=== PATIENT | male | born 1985 | race Caucasian/White ===

== ENCOUNTER 2021-07-10 23:33 | Inpatient (IN) | payer MEDICAID, OTHER ==
[~2021-07-10] VITALS: Ht 177.8 cm; Wt 64.0 kg
[~2021-07-10 23:33] MED LIST: CYCL-1 PO; DICL100G15 TOP; IBUP-1985 PO; LIDO700A32 TOP; ONDA4TAB12 PO
[2021-07-10] MEDS ORDERED: naloxone 2mg/2ml inj ONE (23:43)
[2021-07-10] MEDS ORDERED: normal saline 1000ML IV soln IVB ONE (23:45)
[2021-07-10 23:58] LABS: ABG BASE EXCESS -7.3 mmol/L (-2.0-2.0); ABG HCO3 19.8 mmol/L (22.0-26.0); ABG OXYGEN SATURATION 98.7 % (94-97); ABG PCO2 (T) 42.1 mmHg (35.0-48.0); ABG PO2 (T) 169.6 mmHg (75.0-100.0); ALLEN'S TEST POSITIVE; FCOHb 0.3 % (0.0-3.9); FMetHb 0.2 % (0.0-1.5); FO2Hb 98.2 % (94-97); PATIENT TEMPERATURE 35.1; TOTAL HEMOGLOBIN 16.7 G/dl (14.0-18.0)
[2021-07-11 00:04] LABS: BASOPHILS # (AUTO) 0.1 X10'3 (0-0.2); EOSINOPHILS # (AUTO) 0.1 X10'3 (0-0.9); EOSINOPHILS % (AUTO) 0.7 % (0-6); HEMATOCRIT 47.6 % (42.0-52.0); HEMOGLOBIN 16.5 g/dl (14.0-17.9); LYMPHOCYTES # (AUTO) 4.2 X10'3 (1.1-4.8); LYMPHOCYTES % (AUTO) 46.5 % (21-51); MEAN CORPUSCULAR HEMOGLOBIN 33.1 PG (27.0-31.0); MEAN CORPUSCULAR HGB CONC 34.6 g/dL (33.0-36.5); MEAN CORPUSCULAR VOLUME 95.7 FL (78-98); MONOCYTES # (AUTO) 0.6 X10'3 (0-0.9); MONOCYTES % (AUTO) 6.6 % (2-12); NEUTROPHILS % (AUTO) 45.2 % (42-75); PLATELET COUNT 344 X10'3 (140-440); RED BLOOD COUNT 4.98 X10'6 (4.70-6.10); RED CELL DISTRIBUTION WIDTH 12.5 % (11.5-14.5); WHITE BLOOD COUNT 8.9 X10'3 (4.5-11.0)
[2021-07-11] MEDS ORDERED: ondansetron/PF 4mg/2ml inj IV ONE (00:05)
[2021-07-11] MEDS ORDERED: pantoprazole 40MG/NS 100ML BAG 100 ML IV ONE (00:10)
[2021-07-11] MEDS ORDERED: AMPH10TA2 PO (00:11)
[2021-07-11] MEDS ORDERED: ALPR1TAB7 PO (00:11)
[2021-07-11] MEDS ORDERED: LAMO100T PO (00:11)
--- NOTE | 2021-07-11 00:11 | NUR ---
PT. PRESENTED IN ER UNCONCIOUS. BROUGHT IN BY [employer] W/POSSIBLE OVERDOSE. 2MG OF NARCAN GIVEN UPON ARRIVAL. 2 LARGE BORE IVS STARTED ON L/R FOREARM 1L OF NS FLUID BOLUS HUNG. PT. STRAIGHT CATHD FOR URINE SAMPLE. ABG DRAWN AND RESPIRATORY BEDSIDE DURING TRIAGE.
[2021-07-11 00:17] LABS: CLARITY,URINE CLEAR (Clear); COLOR,URINE YELLOW (Yellow); GLUCOSE, URINE NEGATIVE (Neg); KETONES,URINE NEGATIVE (Neg); LEUKOCYTE ESTERASE ,URINE NEGATIVE (Neg); NITRITES, URINE NEGATIVE (Neg); OCCULT BLOOD,URINE SMALL (Neg); PH,URINE 5.5 (4.8-8.0); PROTEIN,URINE NEGATIVE (Neg); UROBILINOGEN,URINE 0.2 E.U/dL (0.2-1.0)
[2021-07-11 00:23] LABS: UA COLLECTION TYPE STRAIGHT CATH
[2021-07-11 00:25] LABS: BACTERIA,URINE NONE SEEN /HPF (Neg); MUCUS STRANDS NONE SEEN /LPF (Neg); SQUAMOUS EPITHELIAL CELL,UR FEW /LPF (FEW); URINE AMPHETAMINE SCREEN POSITIVE (Neg); URINE BARBITUATE SCREEN NEGATIVE (Neg); URINE BENZODIAZEPINES SCREEN POSITIVE (Neg); URINE CANNABINOID SCREEN NEGATIVE (Neg); URINE COCAINE SCREEN NEGATIVE (Neg); URINE METHADONE SCREEN NEGATIVE (Neg); URINE OPIATE SCREEN NEGATIVE (Neg); URINE PHENCYCLIDINE SCREEN NEGATIVE (Neg); WBC,URINE NONE SEEN /HPF (0-4)
[2021-07-11 00:28] LABS: ALANINE AMINOTRANSFERASE 14 U/L (12-78); ALBUMIN 4.1 G/DL (3.4-5.0); ALBUMIN/GLOBULIN RATIO 1.4 (1.1-1.5); ALKALINE PHOSPHATASE 31 IU/L (46-116); ANION GAP 8 (8-16); ASPARTATE AMINO TRANSFERASE 12 U/L (10-37); BILIRUBIN,TOTAL 0.2 MG/DL (0.1-1.0); BLOOD UREA NITROGEN 14 MG/DL (7-18); BUN/CREATININE RATIO 13.9 (5.4-32.0); CALCIUM 7.6 MG/DL (8.5-10.1); CHLORIDE 111 MMOL/L (99-107); CREATININE 1.01 MG/DL (0.60-1.10); GLUCOSE 81 MG/DL (70-104); POTASSIUM 3.4 MMOL/L (3.5-5.1); SODIUM 145 MMOL/L (135-145); TOTAL CARBON DIOXIDE 26.1 MMOL/L (24-32); eGFR 83 ML/MIN
[2021-07-11] MEDS ORDERED: normal saline 1000ML IV soln IVB ONE (00:30)
[2021-07-11 00:37] LABS: ACETAMINOPHEN < 2.0 UG/ML (10-30); ETHANOL 0.208 GM/DL (0.0-0.010)
--- NOTE | 2021-07-11 00:54 | NUR ---
POISON CONTROL CONTACTED. RECOMMENDED SUPPORTIVE CARE AND ORDERS FOR CK AND LACTATE DRAW. ALSO RECOMMENDED USING NARCAN AGAIN IF PT CONTINUES TO REMAIN ALTERED. 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 WILL CONTINUE TO MONITOR PT FOR NEXT 6H AND WATCH FOR QT PROLONGATION. POISON CONTROL ALSO STATED NOT TO USE FLUMAZENIL TO AVOID WITHDRAWL.
[2021-07-11 02:30] LABS: CREATINE KINASE 63 U/L (39-308)
--- NOTE | 2021-07-11 03:15 | NUR ---
PT SLEEPING COMFORTABLY. VITAL SIGNS STABLE. 2L OF FLUID BOLUS GIVEN AND BP STILL LOW. WILL CONTINUE TO MONITOR, PA AWARE.
--- NOTE | 2021-07-11 05:15 | NUR ---
PT GAVE MOTHERS NAME AND NUMBER NIXON AT
--- NOTE | 2021-07-11 05:32 | NUR ---
Pt placed in one soft wrist restrait for safety. Pt has climbed out of bed twice and fallen as well as pulled out his IV's. Pt is very unsteady on his feet and is still disoriented. Pt comfort adressed after each fall; urinal offered and blankets provided. notified
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
--- NOTE | 2021-07-11 06:23 | NUR ---
pt resting, eyes closed. 1:1 at bedside for safety.
--- NOTE | 2021-07-11 06:30 | NUR ---
PT CURRENTLY LIVES WITH GRANDMOTHER. MOTHER STATED SHE DOES NOT WANT HIM GOING TO A MENTAL HEALTH FACILITY THAT MAKES HIM FEEL "UNCOMFORTABLE". PT STATED HE DID NOT WANT TO BACK TO [facility] FOR MH TREATMENT.
[2021-07-11] MEDS ORDERED: pantoprazole 40 MG vial IV SCH (08:00)
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
--- NOTE | 2021-07-11 08:31 | NUR ---
Patient moved to room ER-16 to remain within view of staff at all times. Patient calm and cooperative at this time.
--- NOTE | 2021-07-11 08:45 | NUR ---
pt is frequently climbing out of bed, asking to go home, accusing staff of being disrespectful. He is difficult to re-direct. Moved to bed 16 for better view from nursing station. Offered food and drink.
--- NOTE | 2021-07-11 09:30 | NUR ---
Patient pushed tray with food on table with foot hard enough to cause tray to fall over. Patient states "I want to talk to a nurse or a doctor to evaluate me...fruit picker my mess and get out..." Patient within sight of staff at all times.
--- NOTE | 2021-07-11 13:12 | NUR ---
Patient found banging on wall by staff, pat found to have restraint around neck, patient awake, no respiratory distress noted with facial discoloration, patient straining, cord cut off with scissors, patient upset stating "I just want to keegan to a nurse... I want to talk to my mom... I don't get a nurse telling me I want to leave..." no signs of distress noted, skin around neck WNL, primary RN Celeste made aware, Dr Pierce at bedside to assess patient. Sitter assigned to patient.
[2021-07-11] MEDS ORDERED: LORazepam 2 mg/ml vial IM ONE ×2 (13:15→16:40)
[2021-07-11] MEDS ORDERED: haloperidol lactate 5mg/ml inj IM ONE (13:15)
[2021-07-11] MEDS ORDERED: diphenhydrAMINE 50 mg/ml inj IM ONE (13:15)
--- NOTE | 2021-07-11 13:50 | NUR ---
Pt is refusing Haldol injection. Pt has received Ativan and Benadryl but reports the Haldol makes him feel like a "zombie". Dr Pierce updated and as pt currently cooperative Haldol to be held for now. Pt remains with tech outside in front of pt room.
--- NOTE | 2021-07-11 14:15 | NUR ---
PATIENT AWAKE AND IMPULSIVE. GETTING ON AND OFF GURNEY FREQUENTLY. PATIENT IS STANDING ON THE GURNEY AND ASSISTED TO SITTING POSITION PER SITTER. PATIENT HAVING FREQUENT REQUESTS FROM STAFF, THEN IS EASILY AGITATED AND ACCUSES STAFF OF "LAUGHING AT HIM".
--- NOTE | 2021-07-11 14:40 | NUR ---
Mom of pt has requested that Man does NOT make calls to her anymore as it is not helping the situation.
--- NOTE | 2021-07-11 14:46 | NUR ---
Received call from poison control checking on pt status. Pt VSs and labs reviewed, pt is cleared medically per poison control.
[2021-07-11] MEDS ORDERED: haloperidol lactate 5mg/ml inj IM NR (15:10)
--- NOTE | 2021-07-11 15:46 | NUR ---
Pt currently laying on R side resting with eyes closed, effortless respirations observed.
[2021-07-11] MEDS ORDERED: OLANZapine **IM** 10 mg inj. IM ONE (16:40)
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
--- NOTE | 2021-07-11 16:56 | NUR ---
1644 pt out of bed tech asked pt to get back in bed so he wouldnt fall pt states "you better leave me the fuck alone" charged at tech shoving through doors and pushing tech, rest of ER staff assisted tech placing pt back in bed. security called 4 point restraints applied IM orders for zyprexa and ativan given. Dr lyles aware
[2021-07-12] MEDS ORDERED: dextroamphetamine/amphetamine 5mg tablet PO ONE (08:00)
--- NOTE | 2021-07-12 18:53 | NUR ---
ASSUMED CARE OF PT. PT SLEEPING ON HIS LEFT SIDE. EQUAL RISE AND FALL OF CHEST,.
--- NOTE | 2021-07-12 19:49 | NUR ---
PT TURNED ON HIS LEFT SIDE AND CONTINUES TO SLEEP. EQUAL RISE AND FALL OF CHEST.
[2021-07-12] MEDS ORDERED: dextroamphetamine/amphetamine 10mg tablet PO SCH (21:00)
[2021-07-12] MEDS: ALPRAZolam 0.5mg tablet PO SCH (21:00)
--- NOTE | 2021-07-12 21:00 | NUR ---
PT SAT UP, LOOKED AROUND, AND WENT BACK TO SLEEP.
[2021-07-12] MEDS: dextroamphetamine/amphetamine 5mg tablet PO SCH (22:00)
--- NOTE | 2021-07-12 22:00 | NUR ---
PT SLEEPING ON HIS LEFT SIDE. EQUAL RISE AND FALL OF CHEST.
--- NOTE | 2021-07-12 22:15 | NUR ---
SPOKE TO DR AVILEZ CONCERNING PT'S ADDERALL THAT WAS ORDERED FOR NIGHT TIME. HE GAVE VO TO HOLD MED SO PT CAN SLEEP.
--- NOTE | 2021-07-12 23:00 | NUR ---
PT SLEEPIN ON HIS SIDE. EQUAL RISE AND FALL OF CHEST. SITTER WITHIN EYESIGHT OBSERVATION
--- NOTE | 2021-07-13 | NUR ---
PT READJUSTS HIMSELF IN BED FROM TIME TO TIME. CONTINUES TO SLEEP. EQUAL RISE AND FALL OF CHEST.
--- NOTE | 2021-07-13 01:00 | NUR ---
PT LYING ON HIS LEFT SIDE. EQUAL RISE AND FALL OF CHEST .
--- NOTE | 2021-07-13 02:00 | NUR ---
PT LYING ON HIS LEFT SIDE AND SLEEPING. EQUAL RISE AND FALL OF CHEST.
--- NOTE | 2021-07-13 03:06 | NUR ---
PT LYING ON HIS RIGHT SIDE. EQUAL RISE AND FALL OF CHEST.
--- NOTE | 2021-07-13 04:00 | NUR ---
PT SLEEPING ON HIS SIDE COMFORTABLY. EQUAL RISE AND FALL OF CHEST.
--- NOTE | 2021-07-13 05:00 | NUR ---
PT SLEEPING ON HIS LEFT SIDE. EQUAL RISE AND FALL OF CHEST
--- NOTE | 2021-07-13 06:31 | NUR ---
patient asleep,respirations regular.
[2021-07-13] MEDS: ALPRAZolam 0.5mg tablet PO SCH ×2 (08:37→12:48)
[2021-07-13] MEDS: lamoTRIgine 100mg tablet PO SCH (08:37)
[2021-07-13] MEDS: dextroamphetamine/amphetamine 5mg tablet PO SCH (08:38)
--- NOTE | 2021-07-13 08:55 | NUR ---
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
[2021-07-13] MEDS ORDERED: thiamine 100mg/ml 2ml inj. IM ONE (09:45)
[2021-07-13 10:04] LABS: BASOPHILS % (AUTO) 0.5 % (0-1); EOSINOPHILS % (AUTO) 0.8 % (0-6); HEMATOCRIT 46.2 % (42.0-52.0); HEMOGLOBIN 15.7 g/dl (14.0-17.9); LYMPHOCYTES # (AUTO) 1.2 X10'3 (1.1-4.8); LYMPHOCYTES % (AUTO) 20.1 % (21-51); MEAN CORPUSCULAR HEMOGLOBIN 31.9 PG (27.0-31.0); MEAN CORPUSCULAR VOLUME 93.8 FL (78-98); MONOCYTES # (AUTO) 0.4 X10'3 (0-0.9); MONOCYTES % (AUTO) 7.7 % (2-12); NEUTROPHILS # (AUTO) 4.1 X10'3 (1.8-7.7); NEUTROPHILS % (AUTO) 70.9 % (42-75); PLATELET COUNT 288 X10'3 (140-440); RED BLOOD COUNT 4.93 X10'6 (4.70-6.10); RED CELL DISTRIBUTION WIDTH 12.8 % (11.5-14.5); WHITE BLOOD COUNT 5.8 X10'3 (4.5-11.0)
[2021-07-13 10:17] LABS: ALANINE AMINOTRANSFERASE 16 U/L (12-78); ALBUMIN 3.7 G/DL (3.4-5.0); ALBUMIN/GLOBULIN RATIO 1.2 (1.1-1.5); ALKALINE PHOSPHATASE 29 IU/L (46-116); ASPARTATE AMINO TRANSFERASE 35 U/L (10-37); BILIRUBIN,TOTAL 0.5 MG/DL (0.1-1.0); BLOOD UREA NITROGEN 20 MG/DL (7-18); BUN/CREATININE RATIO 17.1 (5.4-32.0); CALCIUM 9.3 MG/DL (8.5-10.1); CREATININE 1.17 MG/DL (0.60-1.10); GLUCOSE 147 MG/DL (70-104); MAGNESIUM 1.9 MG/DL (1.5-2.4); TOTAL PROTEIN 6.9 G/DL (6.4-8.2); eGFR 70 ML/MIN
[2021-07-13 10:25] LABS: ANION GAP 3 (8-16); CHLORIDE 106 MMOL/L (99-107); POTASSIUM 4.3 MMOL/L (3.5-5.1); SODIUM 139 MMOL/L (135-145)
[2021-07-13] MEDS ORDERED: thiamine 100mg tablet PO ONE (10:25)
[2021-07-13 12:05] VITALS: BP 119/89
--- NOTE | 2021-07-13 12:05 | NUR ---
Nursing Admission Note: 5150 paperwork reads You attempted to hang yourself with a bed sheet and your mother reports you have attempted suicide in the past. Patient arrived to [facility] on 07/13/2021 at 12:05 pm in a wheelchair as a direct admit from the Emergency Room. Patient was calm and accompanied by a Train Station Agent and 1 Staff Member. Patient was transported to the Shower Room, where a 2 RN Skin Assessment was completed, and a MRSA Swab was collected and sent to the Laboratory, and the patient showered and shampooed his hair. Patient then ambulated to his assigned room in [address].
[2021-07-13] MEDS ORDERED: acetaminophen 325mg tablet PO PRN ×2 (12:30)
[2021-07-13] MEDS ORDERED: magnesium hydroxide 30ml (MOM) UD suspension PO PRN (12:30)
[2021-07-13] MEDS ORDERED: mag hydrox/Alum hydrox/simeth 30ml oral suspension PO PRN (12:30)
[2021-07-13] MEDS ORDERED: loperamide 2mg capsule PO PRN (12:30)
[2021-07-13] MEDS ORDERED: dextroamphetamine/amphetamine 5mg tablet PO SCH (15:54)
[2021-07-13 19:36] VITALS: BP 118/79
[2021-07-13] MEDS ORDERED: dextroamphetamine/amphetamine 10mg tablet PO SCH (20:00)
[2021-07-13] MEDS: traZODone 50mg tablet PO PRN ×2 (20:53→21:50)
[2021-07-13] MEDS ORDERED: non-formulary drug (Alprazolam 1 TAB) PO SCH (21:00)
[2021-07-13] MEDS: LORazepam 1 MG tablet PO PRN (23:00)
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
[2021-07-14 07:20] VITALS: BP 105/60
[2021-07-14] MEDS: lamoTRIgine 100mg tablet PO SCH (07:35)
[2021-07-14] MEDS: LORazepam 1 MG tablet PO PRN ×2 (07:36→21:48)
[2021-07-14] MEDS ORDERED: lamoTRIgine 100mg tablet PO SCH (08:00)
[2021-07-14 08:15] LABS: CHOL/HDL RATIO 3.5 (0.00-4.99); CHOLESTEROL 140 MG/DL (0-200); HDL CHOLESTEROL 40 MG/DL (35-60); LDL CHOLESTEROL 71 MG/DL (50-100); TRIGLYCERIDES 155 MG/DL (20-135)
[2021-07-14 11:40] VITALS: BP 100/69
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
[2021-07-14 20:43] VITALS: BP 115/71
[2021-07-14] MEDS ORDERED: quetiapine 100mg tablet PO ONE ×2 (22:28→22:30)
--- NOTE | 2021-07-15 03:35 | NUR ---
Nursing Progress Note: Legal hold: 5150 Client on involuntary status for DTS Report received from ELGIN Mccray with use of SBAR. Why are they here: 5150 paperwork reads You attempted to hang yourself with a bed sheet and your mother reports you have attempted suicide in the past. Assessment What has happened this shift:Pt was in the rec room sitting alone at change of shift. Pt states he knows his ativan is not due yet and feel ok but just wants to make sure he gets ativan on time. Pt is isolating to self and spends time listening to music. Pt met with provider this evening and afterwards explained that his trazodone did not work well for him last night and provider changed medication to seroquel. Pt c/o feeling anxious and requested ativan and was provided w/prn. S/I, H/I: Denies A/VH: Denies Sleep: see sleep hours ADL's: Independent Group attendance: no evening groups Were meds taken: Yes Any med S/E: None observed or reported. Mental Status Exam Appearance: adequately groomed and dressed Eye contact: Fair Behavior: isolates to self Speech: Clear, normal rate/ volume Mood: anxious Affect: withdrawn Thought process: Linear, guarded Thought Content: meeting needs, medications Cognition: A&O x3 Insight: Poor Judgment: Poor Interventions PRN's used: Ativan Therapeutic interventions: Maintained a safe and supportive environment, ensured contract for safety, provided clear and simple instructions, provided direction and encouragement regarding performance of ADLs, monitored behaviors and maintained clear boundaries, provided positive reinforcement, and maintained Q 15min safety checks. Restraints/seclusion/emergency medication: N/A Justification of Continued Inpatient Treatment: Pt is in need of mental health stabilization and interruption of current mental health crisis. He has a history of Bipolar and has been off of his meds.
[2021-07-15 07:28] VITALS: BP 104/62
[2021-07-15] MEDS: ESCITALOPRAM OXALATE 5 MG TABLET PO SCH (07:40)
[2021-07-15] MEDS: lamoTRIgine 100mg tablet PO SCH (07:40)
[2021-07-15] MEDS: LORazepam 1 MG tablet PO PRN ×2 (07:43→20:59)
--- NOTE | 2021-07-15 14:57 | NUR ---
Nursing Progress Note: Legal hold: 5150 Client on involuntary status for DTS Report received from ELGIN Rasheed with use of SBAR. Why are they here: 5150 paperwork reads You attempted to hang yourself with a bed sheet and your mother reports you have attempted suicide in the past. Assessment What has happened this shift: Patient resting comfortably in bed. Asking to see the doctor again regarding his lab results. He requested his PRN Ativan stating "I am afraid I will have a seizure from benzodiazepine withdrawal". No other complaints or concerns from him. S/I, H/I: Denies A/VH: Denies Sleep: see sleep hours ADL's: Independent Group attendance: Yes Were meds taken: Yes Any med S/E: None observed or reported. Mental Status Exam Appearance: adequately groomed and dressed Eye contact: Fair Behavior: slight agitation Speech: Clear, normal rate/ volume Mood: anxious Affect: constricted Thought Process: Linear, guarded Thought Content: meeting needs Cognition: A&O x3 Insight: Poor Judgment: Poor Interventions PRN's used: Ativan Therapeutic interventions: Maintained a safe and supportive environment, ensured contract for safety, provided clear and simple instructions, provided direction and encouragement regarding performance of ADLs, monitored behaviors and maintained clear boundaries, provided positive reinforcement, and maintained Q 15min safety checks. Restraints/seclusion/emergency medication: N/A Justification of Continued Inpatient Treatment: Pt is in need of mental health stabilization and interruption of current mental health crisis. He has a history of Bipolar and has been off of his meds.
[2021-07-15 20:00] VITALS: BP 116/82
[2021-07-15] MEDS ORDERED: quetiapine 100mg tablet PO SCH (21:00)
--- NOTE | 2021-07-16 01:02 | NUR ---
Nursing Progress Note: [place] Legal hold: 5150 Client on involuntary status for DTS Report received from Mahendra EISENBERG with use of SBAR. Why are they here: 5150 paperwork reads You attempted to hang yourself with a bed sheet and your mother reports you have attempted suicide in the past. Assessment What has happened this shift: Patient in rec room watching TV, no distress noted. Pt cooperative with care. States he is doing really well and he is discharging home tomorrow. (Patient believes he is discharging.) Pt denies MH symptoms, took all HS medications and participated in snacks. Pt requested PRN Ativan with NOC meds. S/I, H/I: Denies A/VH: Denies Sleep: ADL's: Independent Group attendance: Were meds taken: Yes Any med S/E: None observed or reported. Mental Status Exam Appearance: adequately groomed and dressed Eye contact: Fair Behavior: cooperative Speech: Clear, normal rate/ volume Mood: anxious Affect: constricted Thought Process: Linear, guarded Thought Content: meeting needs Cognition: A&O x3 Insight: Poor Judgment: Poor Interventions PRN's used: Ativan Therapeutic interventions: Maintained a safe and supportive environment, ensured contract for safety, provided clear and simple instructions, provided direction and encouragement regarding performance of ADLs, monitored behaviors and maintained clear boundaries, provided positive reinforcement, and maintained Q 15min safety checks. Restraints/seclusion/emergency medication: N/A Justification of Continued Inpatient Treatment: Pt is in need of mental health stabilization and interruption of current mental health crisis. He has a history of Bipolar and has been off of his meds.
[2021-07-16 07:28] VITALS: BP 112/75
[2021-07-16] MEDS: LORazepam 1 MG tablet PO PRN (08:25)
[2021-07-16] MEDS: lamoTRIgine 100mg tablet PO SCH (08:25)
[2021-07-16] MEDS: ESCITALOPRAM OXALATE 5 MG TABLET PO SCH (08:25)
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
[2021-07-16] MEDS ORDERED: ESCI10TA PO (11:00)
[2021-07-16] MEDS ORDERED: LAMO100T2 PO (11:00)
[2021-07-16] MEDS ORDERED: TRAZ-256 PO (11:00)
[2021-07-16] MEDS ORDERED: QUET100T34 PO (11:00)
[2021-07-16] MEDS ORDERED: ATI1T PO (11:00)
--- NOTE | 2021-07-16 12:50 | NUR ---
Discharge Note: Pt. discharged from the unit accompanied by staff at 1250 to the vehicle of his family member who is picking him up. Belongings were inventoried and returned to pt. by Tech. This casualty underwriter reviewed medications and discharge instructions with pt. and he reported understanding. Pt. was sent with a prescription for PRN Ativan. No nicotine replacement was required. Pt. is able to contract for safety.
== END 2021-07-16 12:50 | disposition home or self-care (01) | DRG 751 ==
LOC: ER 23:34 → ED HOLD 07-13 11:00 → ADULT MH 07-13 11:55
PROVIDERS: ADMIT Psychiatry & Neurology Psychiatry; ATTEND Psychiatry & Neurology Psychiatry
DX: F33.1 Major depressive disorder, recurrent, moderate (principal); G40.909 Epilepsy, unspecified, not intractable, without status epilepticus; F19.129 Other psychoactive substance abuse with intoxication, unspecified; T14.91XA Suicide attempt, initial encounter; Z20.822 Contact with and (suspected) exposure to COVID-19; F43.10 Post-traumatic stress disorder, unspecified; S00.81XA Abrasion of other part of head, initial encounter; W18.39XA Other fall on same level, initial encounter; Y90.4 Blood alcohol level of 80-99 mg/100 ml; Z79.899 Other long term (current) drug therapy; Z78.1 Physical restraint status; Z88.1 Allergy status to other antibiotic agents; Z91.51 Personal history of suicidal behavior; Z88.8 Allergy status to other drugs, medicaments and biological substances; Y93.89 Activity, other specified; Y92.89 Other specified places as the place of occurrence of the external cause; Y99.8 Other external cause status
CPT/HCPCS: 36415; 36600; 71045; 80053; 80061; 80305; 80320; 80329; 81001; 82140; 82330; 82550; 82803; 82948; 83036; 83605; 83735; 84443; 85018; 85025; 87081; 87635; 93005; 96361; 96372; 96374; 96375; 99285; C9113; C9803; J1200; J1630; J2060; J2310; J2405; J3490; J7030

== ENCOUNTER 2023-09-17 18:08 | Emergency (ER) | payer MEDICAID ==
[~2023-09-17] VITALS: Ht 177.8 cm; Wt 77.3 kg
[~2023-09-17 18:08] MED LIST changes: -CYCL-1 PO; -DICL100G15 TOP; +ESCI20TA39 PO; -IBUP-1985 PO; +LAMO100T PO; -LIDO700A32 TOP; +LORA-268 PO; -ONDA4TAB12 PO; +QUET100T34 PO; +TRAZ-256 PO
[2023-09-17] MEDS: ondansetron/PF 4mg/2ml inj IV ONE (19:40)
[2023-09-17] MEDS: morphine 4 MG/ML inj SYRINge IV ONE ×2 (19:40→20:25)
[2023-09-17] MEDS ORDERED: morphine 4 MG/ML inj SYRINge IV ONE (20:15)
[2023-09-17 20:52] VITALS: BP 123/89; PULSE 93; O2SAT 94
[2023-09-17] MEDS ORDERED: HYDR-3965 PO (21:11)
[2023-09-17] MEDS: TETanus/Pertussis (Acell)/Diphther VAC/PF (Tdap-Adult) 0.5ml syringe IMVAC ONE (21:55)
[2023-09-17 22:28] VITALS: RESP 16
[2023-09-17] MEDS: HYDROcodone/acetaminophen 10/325mg tab PO ONE (22:28)
[2023-09-17 22:29] VITALS: TEMP 98
== END 2023-09-17 23:35 | disposition home or self-care (01) ==
LOC: ER 18:09
DX: S82.141A Displaced bicondylar fracture of right tibia, initial encounter for closed fracture (principal); Z91.041 Radiographic dye allergy status; Z79.899 Other long term (current) drug therapy; W19.XXXA Unspecified fall, initial encounter; Y93.89 Activity, other specified; Y92.89 Other specified places as the place of occurrence of the external cause; Y99.8 Other external cause status
CPT/HCPCS: 29505; 73564; 73700; 90471; 90715; 96374; 96375; 96376; 99285; J2270; J2405